=== PATIENT | male | born 1960 | race African-American/Black ===

== ENCOUNTER 2023-09-14 02:29 | Emergency (ER) | payer OTHER ==
[2023-09-14 02:45] VITALS: BMI 31.5
[2023-09-14] MEDS ORDERED: ONDANSETRON 4 MG/2 ML VIAL ONE (04:01)
[2023-09-14] MEDS: FAMOTIDINE 20 MG/50 ML IVPB 20 MG/50 ML MG IVPB ONE (04:12)
[2023-09-14] MEDS: SODIUM CHLORIDE 0.9% 500 ML INFUS.BAG IV ONE (04:12)
[2023-09-14] MEDS: ACETAMINOPHEN 1000 MG/100 ML BAG IVPB ONE (04:12)
[2023-09-14] MEDS: MAG HYDROX/AL HYDROX/SIMETH 30 ML UNIT-DOSE CUP PO ONE (04:12)
[2023-09-14] MEDS: ONDANSETRON 4 MG/2 ML VIAL IVPUSH ONE (04:12)
[2023-09-14 04:22] LABS: BASO % 0.9 % (0-2.0); EOS % 4.5 % (0-4.5); HEMATOCRIT 39.3 % (35.4-49); HEMOGLOBIN 13.2 GM/dL (11.7-16.9); LYMPH % 36.8 % (8-40); MCH 28.6 pg (25.7-33.7); MCHC 33.4 g/dl (32.0-35.9); MEAN CELL VOLUME 85.6 fl (80-96); MEAN PLT VOLUME 8.3 fl (7.5-11.1); NEUT % 49.8 % (42.8-82.8); PLATELET COUNT 200 10^3/uL (134-434); RBC 4.59 M/mm3 (4.00-5.60); RDW 14.3 % (11.9-15.9); WHITE BLOOD COUNT 5.6 K/mm3 (4.0-10.0)
[2023-09-14 04:28] LABS: INR 0.95 (0.83-1.09)
[2023-09-14 04:31] LABS: ACTIVATED PTT 30.6 SECONDS (25.2-36.5); POTASSIUM 4.5 mmol/L (3.5-5.1)
[2023-09-14 04:32] LABS: MAGNESIUM 1.9 mg/dL (1.8-2.4)
[2023-09-14 04:33] LABS: CALCIUM 8.3 mg/dL (8.5-10.1)
[2023-09-14 04:34] LABS: ALBUMIN 3.2 g/dl (3.4-5.0); BLOOD UREA NITROGEN 9.3 mg/dL (7-18)
[2023-09-14 04:36] LABS: VENOUS BASE EXCESS -0.2 mmol/L (-2-2); VENOUS O2 SATURATION 55.6 % (70-80); VENOUS PCO2 50.6 mmHg (38-52); VENOUS PH 7.334 (7.310-7.410)
[2023-09-14 04:36] LABS: PHOSPHOROUS 2.1 mg/dL (2.5-4.9)
[2023-09-14 04:38] LABS: BILIRUBIN,TOTAL 0.4 mg/dL (0.2-1); TOT PROT 6.8 g/dl (6.4-8.2)
[2023-09-14 07:52] LABS: URINE APPEARANCE CLEAR; URINE BILIRUBIN NEGATIVE (NEGATIVE); URINE COLOR YELLOW; URINE GLUCOSE (UA) 3+ (NEGATIVE); URINE KETONE NEGATIVE (NEGATIVE); URINE LEUK ESTERASE NEGATIVE (NEGATIVE); URINE NITRITE NEGATIVE (NEGATIVE); URINE PROTEIN NEGATIVE (NEGATIVE)
[2023-09-14 09:12] VITALS: BP 150/87; PULSE 67; RESP 19; TEMP 97.9
== END 2023-09-14 09:30 | disposition home or self-care (01) ==
LOC: JER 02:29 → EDBD 02:29 → JER 09:30
PROC: 3E033GC Introduction of Other Therapeutic Substance into Peripheral Vein, Percutaneous Approach (ICD-10-PCS; principal; 2023-09-14)
PROC: 3E033GC Introduction of Other Therapeutic Substance into Peripheral Vein, Percutaneous Approach (ICD-10-PCS; 2023-09-14)
PROC: 3E033NZ Introduction of Analgesics, Hypnotics, Sedatives into Peripheral Vein, Percutaneous Approach (ICD-10-PCS; 2023-09-14)
DX: R10.13 Epigastric pain (principal); M79.671 Pain in right foot; M79.672 Pain in left foot; E11.9 Type 2 diabetes mellitus without complications
CPT/HCPCS: 36415; 71045-TC-FY; 74177-TC; 80053; 81003; 82010; 82803; 83605; 83690; 83735; 84100; 84484; 85025; 85610; 85730; 87086; 93005; 93010; 99285-25; J0131; Q9967

== ENCOUNTER 2024-08-07 20:47 | Inpatient (IN) | payer OTHER ==
[2024-08-07] MEDS ORDERED: GLUCAGON 1 MG KIT ONE (21:19)
[2024-08-07] MEDS: GLUCAGON 1 MG KIT IM ONE (21:21)
[2024-08-07] MEDS: DEXTROSE 50%-WATER 25 GM/50 ML DISP.SYRIN IVPUSH ONE (21:33)
[2024-08-07 22:52] LABS: BASO % 0.3 % (0-2.0); EOS % 0.3 % (0-4.5); HEMATOCRIT 39.7 % (35.4-49); HEMOGLOBIN 13.1 GM/dL (11.7-16.9); LYMPH % 5.3 % (8-40); MCH 28.5 pg (25.7-33.7); MCHC 33.1 g/dl (32.0-35.9); MEAN CELL VOLUME 86.3 fl (80-96); MEAN PLT VOLUME 6.5 fl (7.5-11.1); MONO % 2.3 % (3.8-10.2); NEUT % 91.8 % (42.8-82.8); PLATELET COUNT 656 10^3/uL (134-434); RBC 4.59 M/mm3 (4.00-5.60); RDW 14.5 % (11.9-15.9); WHITE BLOOD COUNT 14.4 K/mm3 (4.0-10.0)
[2024-08-07 23:02] LABS: INR 1.02 (0.83-1.09); PROTHROMBIN TIME (PATIENT) 11.1 SEC (9.7-13.0)
[2024-08-07 23:04] LABS: ACTIVATED PTT 35.7 SECONDS (25.2-36.5)
[2024-08-07 23:20] LABS: ALBUMIN 3.1 g/dl (3.4-5.0); CALCIUM 10.1 mg/dL (8.5-10.1)
[2024-08-07 23:21] LABS: BLOOD UREA NITROGEN 12.4 mg/dL (7-18)
[2024-08-07 23:23] LABS: CREATININE 1.3 mg/dL (0.55-1.3)
[2024-08-07 23:26] LABS: BILIRUBIN,TOTAL 0.6 mg/dL (0.2-1)
[2024-08-07 23:27] LABS: TOT PROT 8.3 g/dl (6.4-8.2)
[2024-08-08] MEDS: SODIUM CHLORIDE 1,000 ML IV SCH (01:05)
[2024-08-08 01:36] LABS: URINE APPEARANCE CLEAR; URINE BILIRUBIN NEGATIVE (NEGATIVE); URINE COLOR YELLOW; URINE GLUCOSE (UA) TRACE (NEGATIVE); URINE KETONE NEGATIVE (NEGATIVE); URINE LEUK ESTERASE NEGATIVE (NEGATIVE); URINE NITRITE NEGATIVE (NEGATIVE); URINE PROTEIN TRACE (NEGATIVE); URINE UROBILINOGEN 0.2 mg/dL (0.2-1.0)
[2024-08-08] MEDS: DEXTROSE 50%-WATER 25 GM/50 ML DISP.SYRIN IVPUSH ONE (01:46)
[2024-08-08] MEDS: DEXTROSE 10%-WATER - 1,000 ML IV SCH ×4 (02:58→18:40)
[2024-08-08] MEDS: CEFTRIAXONE 2 GM-D5W BAG 2 GM/50 ML BAG IVPB ONE (05:24)
[2024-08-08 06:11] VITALS: BMI 29.2
[2024-08-08] MEDS ORDERED: DEXTROSE 50%-WATER 25 GM/50 ML DISP.SYRIN ONE (06:56)
[2024-08-08] MEDS ORDERED: DEXTROSE 50%-WATER - 25 GM/50 ML VIAL IVPUSH PRN (07:08)
[2024-08-08] MEDS: ONDANSETRON 4 MG/2 ML VIAL IVPB PRN (10:29)
[2024-08-08] MEDS: POLYETHYLENE GLYCOL (HEALTHYLAX) 3350 17 GM PACKET PO SCH ×2 (10:29→21:49)
[2024-08-08] MEDS ORDERED: DEXTROSE 50%-WATER 25 GM/50 ML DISP.SYRIN IVPUSH PRN ×2 (11:55→15:04)
[2024-08-08] MEDS ORDERED: GLUCAGON 1 MG KIT SQ PRN ×2 (12:34→15:04)
[2024-08-08] MEDS ORDERED: ONDANSETRON 4 MG/2 ML VIAL IVPB PRN (15:04)
[2024-08-08] MEDS: SENNOSIDES 8.6MG TABLET (FP) PO SCH (21:49)
[2024-08-08] MEDS ORDERED: SENNOSIDES 8.6MG TABLET (FP) PO SCH (22:00)
[2024-08-09 08:05] LABS: BASO % 1.2 % (0-2.0); EOS % 0.9 % (0-4.5); HEMATOCRIT 33.4 % (35.4-49); HEMOGLOBIN 11.4 GM/dL (11.7-16.9); LYMPH % 16.7 % (8-40); MCH 28.8 pg (25.7-33.7); MEAN CELL VOLUME 84.7 fl (80-96); MEAN PLT VOLUME 6.3 fl (7.5-11.1); MONO % 9.8 % (3.8-10.2); NEUT % 71.4 % (42.8-82.8); PLATELET COUNT 452 10^3/uL (134-434); RBC 3.95 M/mm3 (4.00-5.60); RDW 14.4 % (11.9-15.9); WHITE BLOOD COUNT 7.9 K/mm3 (4.0-10.0)
[2024-08-09] MEDS: LIDOCAINE HCL 1%, 10 MG/ML (20ML VIAL) INF ONE (08:25)
[2024-08-09] MEDS: BUPIVACAINE HCL/PF 2.5 MG/ML - 30 ML VIAL IJ ONE (08:25)
[2024-08-09 08:30] LABS: POTASSIUM 3.7 mmol/L (3.5-5.1)
[2024-08-09 08:33] LABS: ALBUMIN 2.6 g/dl (3.4-5.0); BLOOD UREA NITROGEN 13.6 mg/dL (7-18); CALCIUM 9.1 mg/dL (8.5-10.1)
[2024-08-09 08:37] LABS: CREATININE 1.3 mg/dL (0.55-1.3)
[2024-08-09 08:38] LABS: BILIRUBIN,TOTAL 0.5 mg/dL (0.2-1); TOT PROT 6.8 g/dl (6.4-8.2)
[2024-08-09] MEDS: CEFTRIAXONE 1 G/50 ML PREMIX 50 ML IVPB SCH (09:33)
[2024-08-09] MEDS ORDERED: LIDOCAINE HCL 1%, 10 MG/ML (20ML VIAL) ONE (12:41)
[2024-08-09] MEDS ORDERED: BUPIVACAINE HCL/PF 0.25% (2.5MG/ML) 10 ML VIAL ONE ×2 (12:42→14:02)
[2024-08-09] MEDS ORDERED: oxyCODONE HCL 5 MG TABLET PO PRN (13:57)
[2024-08-09] MEDS ORDERED: LACTATED RINGERS SOLUTION 1,000 ML IV SCH (14:00)
[2024-08-09] MEDS ORDERED: MIDAZOLAM HCL 2 MG/2 ML SINGLE DOSE VIAL ONE (14:13)
[2024-08-09] MEDS ORDERED: ACETAMINOPHEN INJECTION 100 ML ONE (14:18)
[2024-08-09] MEDS ORDERED: PROPOFOL 20 ML ONE (14:22)
[2024-08-09] MEDS ORDERED: GLUCAGON 1 MG KIT SQ PRN (15:06)
[2024-08-09] MEDS ORDERED: ONDANSETRON 4 MG/2 ML VIAL IVPB PRN (15:06)
[2024-08-09] MEDS ORDERED: DEXTROSE 50%-WATER 25 GM/50 ML DISP.SYRIN IVPUSH PRN (15:06)
[2024-08-09] MEDS: LACTATED RINGERS SOLUTION 1,000 ML IV SCH (15:17)
[2024-08-09] MEDS: D5-1/2NS+10 MEQ KCL - 10 MEQ/1,000 ML INFUS.BAG IV SCH ×2 (15:56→16:40)
[2024-08-09] MEDS: SENNOSIDES 8.6MG TABLET (FP) PO SCH (21:16)
[2024-08-09] MEDS: POLYETHYLENE GLYCOL (HEALTHYLAX) 3350 17 GM PACKET PO SCH (21:17)
[2024-08-10 07:46] LABS: BASO % 1.5 % (0-2.0); EOS % 1.3 % (0-4.5); HEMATOCRIT 30.7 % (35.4-49); HEMOGLOBIN 10.2 GM/dL (11.7-16.9); LYMPH % 20.4 % (8-40); MCH 28.6 pg (25.7-33.7); MCHC 33.3 g/dl (32.0-35.9); MEAN CELL VOLUME 85.9 fl (80-96); MEAN PLT VOLUME 7.1 fl (7.5-11.1); MONO % 12.4 % (3.8-10.2); NEUT % 64.4 % (42.8-82.8); PLATELET COUNT 392 10^3/uL (134-434); RBC 3.57 M/mm3 (4.00-5.60); RDW 13.9 % (11.9-15.9); WHITE BLOOD COUNT 6.4 K/mm3 (4.0-10.0)
[2024-08-10] MEDS: CEFTRIAXONE 1 G/50 ML PREMIX 50 ML IVPB SCH (10:35)
[2024-08-10 12:08] LABS: INSULIN 38.5 uIU/mL (2.6-24.9)
[2024-08-11 07:54] LABS: BASO % 1.4 % (0-2.0); EOS % 2.1 % (0-4.5); HEMATOCRIT 28.9 % (35.4-49); HEMOGLOBIN 9.8 GM/dL (11.7-16.9); LYMPH % 28.8 % (8-40); MCH 28.6 pg (25.7-33.7); MCHC 34.1 g/dl (32.0-35.9); MONO % 12.8 % (3.8-10.2); NEUT % 54.9 % (42.8-82.8); PLATELET COUNT 351 10^3/uL (134-434); RBC 3.44 M/mm3 (4.00-5.60); RDW 14.3 % (11.9-15.9); WHITE BLOOD COUNT 4.5 K/mm3 (4.0-10.0)
[2024-08-11 08:14] LABS: POTASSIUM 4.1 mmol/L (3.5-5.1)
[2024-08-11 08:16] LABS: ALBUMIN 2.3 g/dl (3.4-5.0); CALCIUM 8.1 mg/dL (8.5-10.1)
[2024-08-11 08:17] LABS: BLOOD UREA NITROGEN 9.2 mg/dL (7-18)
[2024-08-11 08:19] LABS: CREATININE 0.8 mg/dL (0.55-1.3)
[2024-08-11 08:21] LABS: BILIRUBIN,TOTAL 0.4 mg/dL (0.2-1)
[2024-08-11] MEDS: oxyCODONE HCL 5 MG TABLET PO PRN (17:58)
[2024-08-12 07:07] LABS: BASO % 2.2 % (0-2.0); EOS % 1.8 % (0-4.5); HEMATOCRIT 28.9 % (35.4-49); HEMOGLOBIN 9.6 GM/dL (11.7-16.9); LYMPH % 31.6 % (8-40); MCH 28.8 pg (25.7-33.7); MCHC 33.3 g/dl (32.0-35.9); MEAN CELL VOLUME 86.5 fl (80-96); MEAN PLT VOLUME 7.3 fl (7.5-11.1); MONO % 11.3 % (3.8-10.2); NEUT % 53.1 % (42.8-82.8); PLATELET COUNT 353 10^3/uL (134-434); RBC 3.34 M/mm3 (4.00-5.60); RDW 13.8 % (11.9-15.9); WHITE BLOOD COUNT 4.8 K/mm3 (4.0-10.0)
[2024-08-12 07:31] LABS: POTASSIUM 4.2 mmol/L (3.5-5.1)
[2024-08-12 07:39] LABS: ALBUMIN 2.4 g/dl (3.4-5.0); BLOOD UREA NITROGEN 6.7 mg/dL (7-18); CREATININE 0.8 mg/dL (0.55-1.3)
[2024-08-12 07:41] LABS: BILIRUBIN,TOTAL 0.4 mg/dL (0.2-1); CALCIUM 8.5 mg/dL (8.5-10.1); TOT PROT 6.2 g/dl (6.4-8.2)
[2024-08-12] MEDS: INSULIN ASPART SLIDING SCALE (NOVOLOG) 1 VIAL SQ SCH (12:04)
[2024-08-12] MEDS: INSULIN (LEVEMIR) 100 UNITS/ML UNITS SQ SCH (12:05)
[2024-08-12] MEDS: metroNIDAZOLE 250 MG TABLET PO SCH (14:31)
[2024-08-13 07:31] LABS: BASO % 1.5 % (0-2.0); EOS % 2.3 % (0-4.5); HEMATOCRIT 31.4 % (35.4-49); HEMOGLOBIN 10.3 GM/dL (11.7-16.9); LYMPH % 29.4 % (8-40); MCH 28.3 pg (25.7-33.7); MEAN CELL VOLUME 85.9 fl (80-96); MEAN PLT VOLUME 7.3 fl (7.5-11.1); MONO % 10.2 % (3.8-10.2); NEUT % 56.6 % (42.8-82.8); PLATELET COUNT 336 10^3/uL (134-434); RBC 3.65 M/mm3 (4.00-5.60); RDW 13.8 % (11.9-15.9); WHITE BLOOD COUNT 5.3 K/mm3 (4.0-10.0)
[2024-08-13 07:33] LABS: POTASSIUM 4.4 mmol/L (3.5-5.1)
[2024-08-13 07:35] LABS: ALBUMIN 2.4 g/dl (3.4-5.0); BLOOD UREA NITROGEN 5.1 mg/dL (7-18); CALCIUM 8.2 mg/dL (8.5-10.1)
[2024-08-13 07:38] LABS: CREATININE 0.7 mg/dL (0.55-1.3)
[2024-08-13 07:40] LABS: BILIRUBIN,TOTAL 0.4 mg/dL (0.2-1); TOT PROT 6.3 g/dl (6.4-8.2)
[2024-08-14] MEDS ORDERED: GLUCAGON 1 MG KIT SQ PRN (18:49)
[2024-08-14] MEDS ORDERED: ONDANSETRON 4 MG/2 ML VIAL IVPB PRN (18:49)
[2024-08-14] MEDS: metroNIDAZOLE 250 MG TABLET PO SCH (21:29)
[2024-08-14] MEDS: POLYETHYLENE GLYCOL (HEALTHYLAX) 3350 17 GM PACKET PO SCH (21:29)
[2024-08-14] MEDS: SENNOSIDES 8.6MG TABLET (FP) PO SCH (21:29)
[2024-08-14] MEDS: oxyCODONE HCL 5 MG TABLET PO PRN (21:37)
[2024-08-14] MEDS: INSULIN (LEVEMIR) 100 UNITS/ML UNITS SQ SCH (21:41)
[2024-08-14] MEDS: INSULIN ASPART SLIDING SCALE (NOVOLOG) 1 VIAL SQ SCH (21:42)
[2024-08-15] MEDS: ONDANSETRON *ODT* 4 MG TABLET SL PRN (18:48)
[2024-08-15] MEDS ORDERED: ONDANSETRON 4 MG/2 ML VIAL IVPUSH ONE (22:09)
[2024-08-15] MEDS: ONDANSETRON *ODT* 4 MG TABLET SL ONE (22:54)
[2024-08-16 19:33] VITALS: PULSE 85; RESP 18
[2024-08-17 01:06] VITALS: BP 136/88; TEMP 97.7
== END 2024-08-17 01:30 | DRG 264 ==
LOC: JER 20:47 → JERBED 23:39 → J8W 08-08 04:40 → J4W 08-08 13:58 → OBSVTOIN 08-09 10:39 → J6S 08-14 18:39
PROVIDERS: ADMIT Internal Medicine; ATTEND Family Medicine
PROC: 0JBN0ZZ Excision of Right Lower Leg Subcutaneous Tissue and Fascia, Open Approach (ICD-10-PCS; principal; 2024-08-09 11:30)
DX: E11.52 Type 2 diabetes mellitus with diabetic peripheral angiopathy with gangrene (principal); G93.41 Metabolic encephalopathy; K56.7 Ileus, unspecified; I96 Gangrene, not elsewhere classified; I10 Essential (primary) hypertension; E78.5 Hyperlipidemia, unspecified; E11.649 Type 2 diabetes mellitus with hypoglycemia without coma; K59.00 Constipation, unspecified; E11.40 Type 2 diabetes mellitus with diabetic neuropathy, unspecified; E11.621 Type 2 diabetes mellitus with foot ulcer; L97.529 Non-pressure chronic ulcer of other part of left foot with unspecified severity; T37.0X5A Adverse effect of sulfonamides, initial encounter
CPT/HCPCS: 36415; 70450-TC; 71045-TC-FY; 74176-TC; 80048; 80053; 80061; 81003; 82024; 82533; 82550; 82728; 82962; 83036; 83525; 83540; 83550; 83605; 84484; 85025; 85610; 85730; 86850; 86900; 86901; 87040; 87070; 87076; 87077; 87086; 87205; 93005; 93010; 94010; 94760; 97116-GP; 97162-GP; 99291; G0378; J0131; J2997; Q0162